=== PATIENT | female | born 1935 | race Two or more races ===

== ENCOUNTER 2016-11-14 13:23 | Inpatient (IN) | payer MEDICARE, OTHER ==
[~2016-11-14] VITALS: Ht 154.9 cm; Wt 59.0 kg
--- NOTE | 2016-11-14 13:26 | NUR ---
PT BIBRA FROM HOME TO ER BED 09. PER REPORT, WITNESSED SYNCOPE. NO TRAUMA. ASSISTED TO THE GROUND. C/O DIZZINESS AND GENERALIZED WEAKNESS. 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 BLOOD SUGAR IS 17O. GOWNED AND PLACED ON MONITOR. AWAITING MD OROURKE.
--- NOTE | 2016-11-14 13:28 | NUR ---
NAT BLOCK AT BEDSIDE FOR EVAL.
[2016-11-14] MEDS ORDERED: LEVO50TA8 PO (13:30)
[2016-11-14] MEDS ORDERED: CALC-883 PO (13:30)
[2016-11-14] MEDS ORDERED: ESOM40CA PO (13:30)
[2016-11-14] MEDS ORDERED: AMIO200T2 PO (13:30)
[2016-11-14] MEDS ORDERED: GLUC-138 PO (13:30)
[2016-11-14] MEDS ORDERED: LISI-603 PO (13:30)
[2016-11-14] MEDS ORDERED: ZOLP5TAB7 PO (13:30)
[2016-11-14] MEDS ORDERED: HYDR-552 PO (13:30)
[2016-11-14] MEDS ORDERED: ASPI-991 PO (13:30)
[2016-11-14] MEDS ORDERED: HYDR50TA3 PO (13:30)
[2016-11-14] MEDS ORDERED: PRED20TA PO (13:30)
[2016-11-14] MEDS ORDERED: FERR-58 PO (13:30)
--- NOTE | 2016-11-14 13:47 | NUR ---
RADIOLOGY AT BEDSIDE FOR CHEST XRAY.
[2016-11-14 13:51] LABS: BASOPHILS % (AUTO) 0.2 % (0.0-2.0); EOSINOPHILS # (AUTO) 0.1 /CMM (0.0-0.7); EOSINOPHILS % (AUTO) 1.4 % (0.0-6.0); HEMATOCRIT 35 % (33-45); HEMOGLOBIN 11.7 g/dL (11.5-14.8); LYMPHOCYTES # (AUTO) 1.2 /CMM (0.8-4.8); LYMPHOCYTES % (AUTO) 11.7 % (20.0-44.0); MEAN CORPUSCULAR HEMOGLOBIN 29 PG (26.0-33.0); MEAN CORPUSCULAR HGB CONC 33 g/dl (31.0-36.0); MEAN CORPUSCULAR VOLUME 86 fL (82-100); MONOCYTES # (AUTO) 0.5 /CMM (0.1-1.30); MONOCYTES % (AUTO) 4.7 % (2.0-12.0); NEUTROPHILS # (AUTO) 8.1 /CMM (1.8-8.9); PLATELET COUNT (AUTO) 277 /CMM (150-450); RDW COEFFICIENT OF VARIATION 17.8 (11.5-15.0); RED BLOOD CELL COUNT(AUTO) 4.07 MIL/uL (4.0-5.2); WHITE BLOOD COUNT (AUTO) 9.8 K/uL (4.3-11.0)
[2016-11-14 13:58] LABS: CALCIUM, SERUM 8.7 mg/dL (8.5-10.1); CARBON DIOXIDE 29 mmol/L (21-32); CHLORIDE 102 mmol/L (98-107); CREATININE 1.4 mg/dL (0.6-1.3); GLUCOSE 128 mg/dL (74-106); POTASSIUM 3.4 mmol/L (3.5-5.1); SODIUM SERUM 138 mmol/L (136-145); UREA NITROGEN, BLOOD 27 mg/dL (7-18)
[2016-11-14 14:06] LABS: TROPONIN I 0.074 ng/mL (0.00-0.056)
[2016-11-14] MEDS ORDERED: IV NS 0.9% 1,000 ML BAG IV ONE (14:30)
--- NOTE | 2016-11-14 14:43 | NUR ---
PT UNABLE TO PROVIDE URINE SAMPLE AT THIS TIME. STATES GIVE HERE 10 MINS. WILL TRY AGAIN.
--- NOTE | 2016-11-14 15:07 | NUR ---
PT TO RADIOLOGY FOR HEAD CT SCAN VIA [facility].
[2016-11-14 15:11] LABS: INR 0.97 (0.87-1.13); PROTHROMBIN TIME 10.1 SECS (9.5-12.7)
[2016-11-14 15:44] LABS: APPEARANCE,URINE Clear (CLEAR); BILIRUBIN,URINE Negative (NEGATIVE); BLOOD, URINE Negative Ery/uL (NEGATIVE); COLOR,URINE Yellow (YELLOW); KETONES,URINE Negative (NEGATIVE); LEUKOCYTE ESTERASE ,URINE Negative (NEGATIVE); NITRITE, URINE Negative (NEGATIVE); PROTEIN,URINE Negative (NEGATIVE); UGLUCOSE Negative (NEGATIVE); UROBILINOGEN,URINE 0.2 EU/dL (0.2)
[2016-11-14 16:11] LABS: ALBUMIN 3.5 g/dL (3.4-5.0); BILIRUBIN,DIRECT 0.1 mg/dL (0.0-0.2); BILIRUBIN,TOTAL 0.5 mg/dL (0.2-1.0); TOTAL PROTEIN, SERUM 6.6 g/dL (6.4-8.2)
--- NOTE | 2016-11-14 16:43 | NUR ---
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
--- NOTE | 2016-11-14 17:06 | NUR ---
310-1 TELE NURSE IDANIA
--- NOTE | 2016-11-14 17:25 | NUR ---
REPORT GIVEN TO IDANIA. PT AWAITING TRANSFER TO FLOOR.
--- NOTE | 2016-11-14 17:40 | NUR ---
RN NOTES PT WAS BROUGHT ONTO THE FLOOR FROM THE ER. PT IS ALERT AND ORIENTED X4, KHMER SPEAKING. PT ON RA, RESPIRATIONS EVEN AND UNLABORED. IV ON LAC INTACT AND PATENT. NO SIGNS OF DISTRESS NOTED. SON IS AT THE BEDSIDE. SAFETY MEASURES ARE IN PLACE, CALL LIGHT IS IN REACH. WILL CONTINUE TO MONITOR.
[2016-11-14 17:50] VITALS: BP 118/86
--- NOTE | 2016-11-14 18:45 | NUR ---
RN NOTES PT IS IN BED, RESTING COMFORTABLY. ON RA, RESPIRATIONS ARE EVEN AND UNLABORED. IV ON LAC, INTACT AND PATENT, SL. PT ABLE TO GET TO BEDSIDE COMMODE WITH ASSISTANCE. PT RECEIVED DINNER, CARDIAC DIET. SAFETY MEASURES ARE IN PLACE, CALL LIGHT IS IN REACH. WILL ENDORSE TO LABOR ARBITRATOR RN FOR CONTINUITY OF CARE.
--- NOTE | 2016-11-14 19:35 | NUR ---
RN INITIAL NOTES: RECEIVED REPORT FROM IDANIA RN, PT IN BED, AWAKE, A/O X3 ON RA RESPIRATION EVEN AND UNLABORED, DENIES ANY PAIN OR DISCOMFORT AT THIS TIME, PT ON TELE MONITORING CURRENTLY V PACING HR 77, DENIES ANY CHEST PAIN, PT HAS LEFT CW PACEMAKER. LEFT AC G 20 PATENT AND FLUSHING WELL, ON HL. SAFETY PRECAUTIONS FOR FALL INITIATED CALL LIGHT IN REACH WILL CONTINUE TO MONITOR
[2016-11-14 20:00] VITALS: BP 113/50
[2016-11-14] MEDS ORDERED: MAGNESIUM HYDROXIDE 30 ML UDC PO PRN (20:00)
[2016-11-14] MEDS ORDERED: Z GUARD REMEDY 2 OZ OINT TP PRN (20:00)
[2016-11-14] MEDS ORDERED: ENOXAPARIN SODIUM 40 MG/0.4 ML DISP.SYRIN SQ SCH (20:00)
[2016-11-14] MEDS ORDERED: POTASSIUM CHLORIDE 20 MEQ TAB.PRT.SR PO ONE ×2 (20:00→20:38)
[2016-11-14] MEDS ORDERED: ONDANSETRON HCL/PF 4 MG/2 ML VIAL IVP PRN (20:00)
[2016-11-14] MEDS ORDERED: HYDROCODONE/APAP 5/325MG 1 EACH TABLET PO PRN (20:00)
[2016-11-14] MEDS ORDERED: ZOLPIDEM TARTRATE 5 MG TABLET PO PRN (20:00)
--- NOTE | 2016-11-14 20:00 | NUR ---
orthostatic bp: performed orthostatic for the pt and the results were the ff: supine: 113/50 hr 67 rr 19 spo2 97% on ra 98.4 sittin/64 hr 68 rr 19 spo2 97% on ra 98.4 standin/65 hr 60 spo2 97% on ra 98.4 pt denies any dizziness or discomfort while performing orthostatic will continue to monitor
[2016-11-14 20:15] VITALS: BP_SYST 118; BP_SYST 90; BP_DIAS 64; BP_DIAS 65
[2016-11-14 20:30] VITALS: BP 90/65
[2016-11-14] MEDS ORDERED: ENOXAPARIN SODIUM 40 MG/0.4 ML DISP.SYRIN SQ ONE (20:37)
[2016-11-14] MEDS ORDERED: ACETAMINOPHEN 325 MG TABLET ONE (20:48)
[2016-11-14] MEDS: ACETAMINOPHEN 325 MG TABLET PO PRN (20:49)
--- NOTE | 2016-11-14 20:49 | NUR ---
kdur replacement: pt's k level is 3.4, per md order top give KDUR 40MEQ PO at this time. due meds given as ordered
--- NOTE | 2016-11-14 20:51 | NUR ---
prn tylenol: pt c/o p[ain on her shoulder and hand, 06/07 informed pt she can have tylenol for mild pain and norco for moderate pain, tanisha brooks translated for the pt per pt she doesnt want norco because it makes her sleepy all day, so she cose to get tylenol. prn tylenol 650mg tab po administered to the pt at this time.
[2016-11-14] MEDS: IV NS 0.9% 1,000 ML IV PRN (21:53)
[2016-11-15] VITALS (10 sets, daily range): BP systolic 100–155; BP diastolic 45–74
[2016-11-15 04:36] LABS: BASOPHILS % (AUTO) 0.3 % (0.0-2.0); EOSINOPHILS # (AUTO) 0.1 /CMM (0.0-0.7); EOSINOPHILS % (AUTO) 2.1 % (0.0-6.0); HEMATOCRIT 32 % (33-45); HEMOGLOBIN 10.7 g/dL (11.5-14.8); LYMPHOCYTES # (AUTO) 1.3 /CMM (0.8-4.8); MEAN CORPUSCULAR HEMOGLOBIN 29 PG (26.0-33.0); MEAN CORPUSCULAR HGB CONC 33 g/dl (31.0-36.0); MEAN CORPUSCULAR VOLUME 87 fL (82-100); MONOCYTES # (AUTO) 0.6 /CMM (0.1-1.30); MONOCYTES % (AUTO) 8.6 % (2.0-12.0); PLATELET COUNT (AUTO) 260 /CMM (150-450); RDW COEFFICIENT OF VARIATION 17.1 (11.5-15.0); RED BLOOD CELL COUNT(AUTO) 3.73 MIL/uL (4.0-5.2); WHITE BLOOD COUNT (AUTO) 7.1 K/uL (4.3-11.0)
[2016-11-15 04:51] LABS: CHOLESTEROL 195 mg/dL (<200); HDL CHOLESTEROL 58 mg/dL (40-60); LDL 127 mg/dL (0-99); TRIGLYCERIDES 88 mg/dL (30-150)
[2016-11-15 04:58] LABS: CALCIUM, SERUM 8.4 mg/dL (8.5-10.1); CARBON DIOXIDE 26 mmol/L (21-32); CHLORIDE 108 mmol/L (98-107); CREATININE 1.1 mg/dL (0.6-1.3); GLUCOSE 96 mg/dL (74-106); MAGNESIUM 1.9 mg/dL (1.8-2.4); PHOSPHORUS 3.4 mg/dL (2.5-4.9); POTASSIUM 4.2 mmol/L (3.5-5.1); SODIUM SERUM 141 mmol/L (136-145); UREA NITROGEN, BLOOD 23 mg/dL (7-18)
[2016-11-15] MEDS ORDERED: ACETAMINOPHEN 325 MG TABLET ONE (06:01)
[2016-11-15] MEDS: ACETAMINOPHEN 325 MG TABLET PO PRN (06:02)
--- NOTE | 2016-11-15 06:03 | NUR ---
prn tylenol: pt c/o shoulder and hand pain refusing for norco so i offered tylenol, prn tylenol 650 mg tab po administered to the pt at this time, will cotnineu to monitor and reassess
[2016-11-15] MEDS ORDERED: MAGNESIUM HYDROXIDE 30 ML UDC ONE (06:29)
--- NOTE | 2016-11-15 06:31 | NUR ---
prn milk of magnesia: pt insisted to take the medication for constipation she stated she hasnt move her bowels, and feeling constipated, also prune juice provided to hep for moving her bm, prn milk of magnesia 30ml administered to the pt at this time.
--- NOTE | 2016-11-15 06:51 | NUR ---
rn closing notes: pt in bed, awake, respiration even and unlabored, remains on av-pacing hr 60, pt denies any chest pain, pt still c/o of shoulder and hand pain, pt still refused for norco, despite giving education, vs remains stable, orthostatic bp taken and recorded, for echo and pt eval in am, left ac iv access remains patent and flushing well, infuisng with ns at 75ml/hr needs attended, safety precautions remains engaged call light in reach, will endorse to day rn for faizan.
--- NOTE | 2016-11-15 07:10 | NUR ---
FIRST LINE PRODUCTION SUPERVISOR INITIAL NOTES REPORT RECEIVED AT THE BEDSIDE. PATIENT IS RESTING COMFORTABLY IN BED. NO SOB OR DISTRESS NOTED AT THIS TIME. PATIENT DENIES PAIN AT THIS TIME. HEART RATE IS VPACING IN THE 70S. BED IN A LOW POSITION, CALL LIGHT IS WITHIN PATIENT REACH. WILL CONTINUE TO MONITOR.
[2016-11-15] MEDS ORDERED: LEVOTHYROXINE SODIUM 50 MCG TABLET PO SCH (07:30)
[2016-11-15] MEDS ORDERED: PANTOPRAZOLE 40 MG TABLET.DR PO SCH (08:07)
[2016-11-15] MEDS ORDERED: predniSONE 20 MG TABLET PO SCH (09:00)
[2016-11-15] MEDS ORDERED: ASPIRIN EC 81 MG TABLET.DR PO SCH (09:00)
[2016-11-15] MEDS ORDERED: FERROUS SULFATE (325 MG) 325 MG/TAB TABLET PO SCH (09:00)
[2016-11-15] MEDS ORDERED: LISINOPRIL (20MG) 20 MG TABLET PO SCH (09:00)
[2016-11-15] MEDS ORDERED: AMIODARONE HCL 200 MG TABLET PO SCH (09:00)
[2016-11-15] MEDS: IV NS 0.9% 1,000 ML IV PRN (11:02)
--- NOTE | 2016-11-15 11:19 | NUR ---
RN NOTES PT PACEMAKER CHECKED BY TECH, STATES PACEMAKER IS FULLY FUNCTIONAL, BUT HAS ABOUT A YEAR LEFT OF BATTERY LIFE. WILL INFORM MCKAYLA MARSHALL.
[2016-11-15] MEDS ORDERED: HYDROCHLOROTHIAZIDE 25 MG TABLET PO SCH (17:00)
--- NOTE | 2016-11-15 17:19 | NUR ---
DISCHARGE NOTES DISCHARGE INSTRUCTIONS GIVEN TO THE PATIENT AND FAMILY. NO SOB OR DISTRESS NOTED AT THIS TIME. PATIENT DENIES PAIN. IV DISCONNECTED AND PRESSURE APPLIED, NO BLEEDING NOTED AT THE SITE. PAPERWORK GIVEN TO PATIENT. PATIENT REFUSE 1500 MEDS SHE STATES SHE WILL TAKE THEM AT HOME AFTER DINNER. PATIENT LEFT IN STABLE CONDITION, VIA PRIVATE CAR, TO HOME. LEFT WITH NIECE IN STABLE CONDITION.
[2016-11-15] MEDS ORDERED: ENOXAPARIN SODIUM 30 MG/0.3 ML DISP.SYRIN SQ SCH (21:00)
== END 2016-11-15 17:05 | disposition home or self-care (01) | DRG 682 ==
LOC: ER 13:29 → MED 17:29 → TELE 18:23
PROVIDERS: ADMIT Nurse Practitioner Acute Care; ATTEND Nurse Practitioner Acute Care
DX: N17.0 Acute kidney failure with tubular necrosis (principal); I21.4 Non-ST elevation (NSTEMI) myocardial infarction; E87.6 Hypokalemia; Z95.0 Presence of cardiac pacemaker; Z79.899 Other long term (current) drug therapy; Z79.82 Long term (current) use of aspirin; K21.9 Gastro-esophageal reflux disease without esophagitis; M19.90 Unspecified osteoarthritis, unspecified site; M54.12 Radiculopathy, cervical region; I10 Essential (primary) hypertension; I95.1 Orthostatic hypotension; E89.0 Postprocedural hypothyroidism
CPT/HCPCS: 36415; 70450-TC; 71010-TC; 80048-TC; 80061-TC; 80076-TC; 81000-TC; 83605-TC; 83735-TC; 84100-TC; 84484-TC; 85025-TC; 85730-TC; 87040-TC; 87081-TC; 87086-TC; 93307-TC; A4606; J1650; J7030; Z7610